=== PATIENT | male | born 1995 | race Two or more races ===

== ENCOUNTER 2020-03-28 13:32 | Emergency (ER) | payer BC, OTHER ==
[~2020-03-28] VITALS: Ht 185.4 cm; Wt 79.5 kg
[2020-03-28] MEDS ORDERED: ONDANSETRON 4 MG TAB PO ONE (14:30)
[2020-03-28 14:54] LABS: BASO % 0.2 % (0.0-1.0); EOS % 0.2 % (0.0-3.0); HEMATOCRIT 46.5 % (42.0-52.0); HEMOGLOBIN 15.5 g/dl (13.5-17.5); LYMPH % 10.5 % (24.0-44.0); MEAN CORPUSCULAR HEMOGLOBIN 28.9 pg (27.0-33.0); MEAN CORPUSCULAR HGB CONC 33.3 g/dl (32.0-36.5); MEAN CORPUSCULAR VOLUME 86.8 fl (80.0-96.0); MONO # 0.4 10^3/uL (0.0-0.8); MONO % 4.6 % (0.0-5.0); NEUTROPHILS % 83.9 % (36.0-66.0); PLATELET COUNT, AUTOMATED 249 10^3/uL (150-450); RED BLOOD COUNT 5.36 10^6/uL (4.30-6.10); WHITE BLOOD COUNT 9.5 10^3/uL (4.0-10.0)
[2020-03-28 15:22] LABS: ALBUMIN 4.7 GM/DL (3.2-5.2); BILIRUBIN,DIRECT 0.2 MG/DL (0.0-0.2); BILIRUBIN,TOTAL 0.6 MG/DL (0.2-1.0); TOTAL PROTEIN 7.7 GM/DL (6.4-8.2)
[2020-03-28] MEDS ORDERED: NS 1,000 ML IV ONE (15:45)
[2020-03-28] MEDS ORDERED: ZOFR4TAB16 PO (19:12)
--- NOTE | 2020-03-28 19:23 | ECGEPIP ---
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
[2020-03-28 19:33] VITALS: BP 151/89
== END 2020-03-28 19:40 | disposition home or self-care (01) ==
LOC: M ED 13:32
DX: E86.0 Dehydration (principal); T51.91XA Toxic effect of unspecified alcohol, accidental (unintentional), initial encounter; Z88.0 Allergy status to penicillin